=== PATIENT | male | born 1985 | race Hispanic/Latino ===

== ENCOUNTER 2022-05-13 08:08 | Emergency (ER) | payer SELFPAY ==
[2022-05-13] MEDS ORDERED: Ketorolac 30 MG/ML SDV IM ONE (09:32)
[2022-05-13] MEDS ORDERED: predniSONE 20 MG Tab PO ONE (09:32)
== END 2022-05-13 10:03 | disposition home or self-care (01) ==
LOC: MW.ED 08:08
DX: M10.9 Gout, unspecified (principal); Z79.899 Other long term (current) drug therapy
CPT/HCPCS: 96372; 99283; A9270; J1885

== ENCOUNTER 2022-10-08 20:04 | Emergency (ER) | payer OTHER ==
[2022-10-08] MEDS ORDERED: Ketorolac 30 MG/ML SDV IM ONE (21:18)
[2022-10-08] MEDS ORDERED: predniSONE 10 MG Tab PO ONE (21:19)
== END 2022-10-08 22:00 | disposition home or self-care (01) ==
LOC: MW.ED 20:04
DX: M10.9 Gout, unspecified (principal); I10 Essential (primary) hypertension; E11.9 Type 2 diabetes mellitus without complications; Z79.84 Long term (current) use of oral hypoglycemic drugs; Z79.899 Other long term (current) drug therapy
CPT/HCPCS: 96372; 99283; A9270; J1885

== ENCOUNTER 2023-03-02 15:59 | Emergency (ER) | payer OTHER ==
[2023-03-02] MEDS ORDERED: Ketorolac 30 MG/ML SDV IM STA (18:08)
== END 2023-03-02 18:24 | disposition home or self-care (01) ==
LOC: MW.ED 15:59
DX: M10.9 Gout, unspecified (principal); E11.9 Type 2 diabetes mellitus without complications; I10 Essential (primary) hypertension; Z79.84 Long term (current) use of oral hypoglycemic drugs; Z79.899 Other long term (current) drug therapy
CPT/HCPCS: 96372; 99283; J1885